=== PATIENT | female | born 1985 ===

== ENCOUNTER 2019-10-03 16:12 | Inpatient (IN) | payer OTHER ==
[2019-10-04] MEDS ORDERED: CITRIC ACID-SODIUM CITRATE 15 ML CUP PO ONE (16:50)
[2019-10-04] MEDS ORDERED: LACTATED RINGERS 1,000 ML IV ONE (16:50)
[2019-10-04] MEDS ORDERED: CLINDAMYCIN 900 MG in DEXTROSE 5% IN WATER 50 ML IVPB STA ×2 (16:52)
[2019-10-04] MEDS ORDERED: LACTATED RINGERS 1,000 ML IV SCH (17:00)
--- NOTE | 2019-10-04 17:00 | P.HPOB ---
History of Present Illness H&P Date: 10/04/19 Chief Complaint: 40-0/7 weeks, severe oligohydramnios, previous section The patient is a 34-year-old 5 para 1031 admitted at 40-0/7 weeks as established by last menstrual period and confirmed by early ultrasound. She transferred to our practice at approximately 28 weeks of gestation. Her has otherwise been uncomplicated. She does carry a history of a previous section and had requested vaginal trial of labor. She presented to the office today at which time she underwent routine amniotic fluid index for postdates at which time she was found to have less than 2 cm of fluid. Her cervix is an 18 favorable at fingertip, 40-50% effacement, with the vertex in presentation at -2-3 station. Given the remoteness from delivery and the potential issues with no fluid, the decision is made to repeat her low transverse section under spinal anesthesia. Group B strep status is negative. heart tracing is currently category 1. Obstetrical history: 5 para 1031 with 1 term section complicated by a high spinal and subsequent intubation as well as hemorrhage. Diagnosis for was failure to progress and nonreassuring heart tracing. She additionally had 3 early miscarriages one of which required D&C. Current statistics are listed in history of present illness. EDC of 10/04/2019 was established by last menstrual period and confirmed by early ultrasound at her previous practice in [place]. Laboratory workup demonstrates a blood type of O+ with a negative antibody screen. Rubella status is immune. Remainder of the laboratory workup was within normal limits. One hour Glucola was normal and group B strep status is negative. Gynecologic history: Unremarkable with no history of any infections to include STDs. Review of Systems Review of systems is confined to history of present illness. Past Medical History Past Medical History: Skin Disorder Additional Past Medical History / Comment(s): eczema History of Any Multi-Drug Resistant Organisms: None Reported Past Surgical History: Section Past Anesthesia/Blood Transfusion Reactions: No Reported Reaction Past Psychological History: No Psychological Hx Reported Smoking Status: Never smoker Past Drug Use History: None Reported - Past Family History Mother Family Medical History: Cancer Medications and Allergies Home Medications Medication Instructions Recorded Confirmed Type Pnv No.95/Ferrous Fum/Folic AC 1 tab PO DAILY 10/04/19 10/04/19 History [ Multivitamin Tablet] Allergies Allergy/AdvReac Type Severity Reaction Status Date / Time amoxicillin Allergy Rash/Hives Verified 10/04/19 16:41 shellfish derived [Shellfish] Allergy Swelling Verified 10/04/19 16:41 Exam Vital Signs Temp Pulse Resp BP 10/04/19 16:42 97.2 F L 90 16 125/80 Intake and Output 10/04/19 10/04/19 10/04/19 06:59 14:59 22:59 Other: Weight 87.543 kg In general, this is a well-developed, well-nourished white female in no acute distress. Her heart has a regular rhythm and rate without murmur. Her lungs are clear to auscultation bilaterally in all [place]. Her abdomen is gravid, nondistended, has normal active bowel sounds, is soft, nontender, and without any palpable masses aside from the uterine fundus. Her extremities are without any cyanosis, clubbing, or significant edema and are nontender to palpation bilaterally. Digital cervical examination demonstrates her cervix to be approximately fingertip dilated, 40-50% effaced, the vertex in presentation at -2-3 station. Assessment and Plan (1) Unfavorable cervix in term Current Visit: Yes Status: Acute Code(s): O34.40 - MATERNAL CARE FOR OTH ABNLT OF CERVIX, UNSP TRIMESTER SNOMED Code(s): 264080990 (2) Term Current Visit: Yes Status: Acute Code(s): Z34.90 - ENCNTR FOR SUPRVSN OF NORMAL , UNSP, UNSP TRIMESTER SNOMED Code(s): 81331955 (3) Previous section Current Visit: Yes Status: Acute Code(s): Z98.891 - HISTORY OF UTERINE SCAR FROM PREVIOUS SURGERY SNOMED Code(s): 647966608 (4) Oligohydramnios Current Visit: Yes Status: Acute Code(s): O41.00X0 - OLIGOHYDRAMNIOS, UNSP TRIMESTER, NOT APPLICABLE OR UNSP SNOMED Code(s): 27227315 Plan: The patient is admitted for repeat low transverse section and is in agreement with the plan given her remoteness from delivery. The risks and complications the procedure been thoroughly discussed including the risk for b leeding, transfusion, infection, or any other concerns. She has understood and agreed to proceed.
[2019-10-04 17:21] LABS: Basophils % (A) 1 %; Eosinophils # (A) 0.1 k/uL (0-0.7); Eosinophils % (A) 1 %; HCT 33.3 % (34.0-46.0); HGB 10.7 gm/dL (11.4-16.0); Hypochromasia Slight; Lymphocytes # (A) 1.5 k/uL (1.0-4.8); Lymphocytes % (A) 18 %; MCH 23.2 pg (25.0-35.0); MCHC 32.2 g/dL (31.0-37.0); MCV 72.1 fL (80.0-100.0); Mean Platelet Volume 8.6; Microcytosis Moderate; Monocytes # (A) 0.6 k/uL (0-1.0); Monocytes % (A) 7 %; Neutrophils # (A) 5.9 k/uL (1.3-7.7); Neutrophils % (A) 72 %; Platelet Count 253 k/uL (150-450); Poikilocytosis Slight; RBC 4.62 m/uL (3.80-5.40); RDW 15.6 % (11.5-15.5); WBC 8.3 k/uL (3.8-10.6)
[2019-10-04] MEDS ORDERED: fentaNYL (PF) 50 MCG/ML 2 ML AMP ONE (17:58)
[2019-10-04] MEDS ORDERED: ONDANSETRON 4 MG/2 ML VIAL ONE (17:58)
[2019-10-04] MEDS ORDERED: KETOROLAC 30 MG/ML 1 ML VIAL ONE (17:58)
[2019-10-04] MEDS ORDERED: MORPHINE SULFATE (PF) 0.3 MG/0.3 ML SYR ONE (17:58)
[2019-10-04] MEDS ORDERED: OXYTOCIN 10 UNIT/ML 1 ML VIAL ONE (17:58)
[2019-10-04] MEDS ORDERED: diphenhydrAMINE 50 MG CAP PO PRN (18:52)
[2019-10-04] MEDS ORDERED: NALOXONE 0.4 MG/ML 1 ML VIAL IV PRN (18:52)
[2019-10-04] MEDS ORDERED: LANOLIN CREAM 5 GM TUBE TOPICAL PRN (18:52)
[2019-10-04] MEDS ORDERED: diphenhydrAMINE 25 MG CAP PO PRN (18:52)
[2019-10-04] MEDS ORDERED: SIMETHICONE 80 MG CHEWABLE PO PRN (18:52)
[2019-10-04] MEDS ORDERED: METOCLOPRAMIDE 5 MG/ML 2 ML VIAL IVP PRN (18:52)
[2019-10-04] MEDS ORDERED: diphenhydrAMINE 50 MG/ML 1 ML VIAL IVP PRN ×2 (18:52)
[2019-10-04] MEDS ORDERED: ONDANSETRON 4 MG/2 ML VIAL IVP PRN (18:52)
[2019-10-04] MEDS ORDERED: ACETAMINOPHEN TAB 325 MG TAB PO PRN (18:52)
[2019-10-04] MEDS ORDERED: ZOLPIDEM 5 MG TAB PO PRN (18:52)
--- NOTE | 2019-10-04 18:59 | P.OP ---
Date of Procedure: 10/04/19 Preoperative Diagnosis: #1. 41 and one sevenths weeks, severe oligohydramnios #2. Previous section #3. Unfavorable cervix Postoperative Diagnosis: Same Procedure(s) Performed: #1. Repeat low transverse section Anesthesia: spinal Surgeon: Abdoul Jacome Electrical Contacts Adjuster #1: Jeremías Ellis Estimated Blood Loss (ml): 500 IV fluids (ml): 1,400 Urine output (ml): 100 Pathology: none sent Condition: stable Disposition: floor Operative Findings: The patient was noted in the office to have severe oligohydramnios with less than 2 cm total fluid noted. heart tones were relatively reassuring, category 1 tracing. She was taken to the operating room because of the remoteness from delivery where she had a repeat low transverse section and an incompetent fashion. She was delivered of a viable 7 lbs. 11 oz. baby girl with Apgars of 9 at 1 minute and 9 at 5 minutes delivered in the left occiput transverse position. The placenta was delivered manually, intact, and grossly normal with a grossly normal three-vessel cord. The uterus, tubes, and ovaries were entirely normal to inspection. Description of Procedure: The patient was prepped and draped in usual fashion after spinal anesthesia was administered by the anesthesiologist. A Pfannenstiel incision was made through pre-existing scar and extended into the abdominal cavity without difficulty. There was mild scarring at the level of the fascia and muscles. The bladder peritoneum was elevated, incised, and reflected distally as it was scarred fairly high on the lower uterine segment. A 2 cm incision was made in the transverse plane of the lower uterine segment to enter the uterus at which time almost no fluid was noted. Incision was extended in both directions using the bandage scissors. The head was delivered up and through the incision where the nose and mouth were thoroughly suctioned. Remainder of the was delivered onto the field where the cord was doubly clamped, cut, and the infant passed for resuscitative measures with weight and Apgars as noted above. cord blood was sent as the patient is O+ for ABO incompatibility testing. The placenta was delivered manually and intact as noted above. The uterus was exteriorized and the interior cavity of the uterus swept of any remaining placental or membranous fragments. The margins of the uterine incision were grasped with Vanegas clamps and the incision closed in 2 layers. The first layer was a running locking stitch of 0 chromic catgut followed by a running imbricating layer of 0 chromic catgut, each from margin to margin. The posterior cul-de-sac was suctioned with a guard and the uterine and ovarian findings were normal as noted above. Any small points of bleeding and the uterine incision were made hemostatic with the Bovie. The uterus was replaced within the abdominal cavity and the gutters swept of any remaining blood, fluid, or clot. The incision was reexamined and found to be hemostatic. The parietal peritoneum was loosely reapproximated in the layer of muscles examined and found to be hemostatic. The fascia was closed with 2 running layers of 0 Vicryl proceeding from the lateral margins to the midpoint. The subcutaneous tissues were irrigated, made hemostatic with the Bovie, and reapproximated with a running stitch of 30 plain catgut. There was an ongoing point of bleeding at the right angle of the incision in the subcutaneous tissues which required a xjihfy-rd-osmcu stitch of 0 chromic as well as cautery, was ultimately controlled. The skin was reapproximated with a running subcuticular stitch of 4-0 Vicryl followed by half-inch Steri-Strips placed with Mastisol. Estimated blood loss for the case was approximately 500 mL. There were no complications. All sponge, instrument, and needle counts were correct. The patient tolerated the procedure well and proceeded to the recovery room in stable condition. Both mother and infant are resting comfortably in recovery.
[2019-10-04] MEDS ORDERED: OXYTOCIN 20 UNITS/1000 ML NS 1,000 ML IV SCH (19:00)
[2019-10-04] MEDS: LACTATED RINGERS 1,000 ML IV SCH (21:34)
[2019-10-04] MEDS: SENNOSIDES-DOCUSATE SODIUM 1 EACH TAB PO SCH (21:34)
[2019-10-05] MEDS: KETOROLAC 30 MG/ML 1 ML VIAL IVP PRN ×2 (04:28→10:17)
[2019-10-05] MEDS: LACTATED RINGERS 1,000 ML IV SCH ×2 (04:29→17:50)
--- NOTE | 2019-10-05 06:55 | P.PN ---
Progress Note - Text 10/04 636am 84-year-old female status post by Dr. Jacome. Patient has spinal anesthetic with Duramorph. Patient has a VAS of 2 with complaints of mild pruritus which should not last for more than 24 hours.. Patient is doing very well.
[2019-10-05 07:56] LABS: Basophils % (A) 0 %; Eosinophils # (A) 0.1 k/uL (0-0.7); Eosinophils % (A) 1 %; HCT 26.6 % (34.0-46.0); Hypochromasia Marked; Lymphocytes # (A) 1.2 k/uL (1.0-4.8); Lymphocytes % (A) 14 %; MCH 22.7 pg (25.0-35.0); MCHC 31.1 g/dL (31.0-37.0); MCV 72.9 fL (80.0-100.0); Mean Platelet Volume 9.1; Microcytosis Slight; Monocytes # (A) 0.4 k/uL (0-1.0); Monocytes % (A) 5 %; Neutrophils # (A) 7.2 k/uL (1.3-7.7); Neutrophils % (A) 79 %; Platelet Count 222 k/uL (150-450); Poikilocytosis Slight; RBC 3.65 m/uL (3.80-5.40); RDW 15.3 % (11.5-15.5); WBC 9.1 k/uL (3.8-10.6)
[2019-10-05 08:13] LABS: HGB 8.3 gm/dL (11.4-16.0)
--- NOTE | 2019-10-05 09:38 | P.PNOBGPC ---
Subjective - Subjective Patient reports: Reports appetite normal, Reports voiding normally, Reports pain well controlled, Reports ambulating normally : doing well Objective - Vital Signs Latest vital signs: Vital Signs Temp Pulse Resp BP Pulse Ox 10/05/19 07:50 98.5 F 70 16 111/64 97 10/05/19 04:20 98.3 F 72 16 106/67 98 10/04/19 23:31 98.5 F 83 16 112/72 97 10/04/19 20:53 97.3 F L 74 16 114/68 100 10/04/19 20:23 97.2 F L 65 16 113/64 98 10/04/19 19:53 96.7 F L 70 16 110/73 98 10/04/19 19:38 96.6 F L 67 16 92/51 96 10/04/19 19:23 97.0 F L 69 16 92/50 95 10/04/19 19:08 71 16 91/53 95 10/04/19 18:53 96.9 F L 77 16 109/55 96 10/04/19 16:42 97.2 F L 90 16 125/80 Intake and Output 10/04/19 10/05/19 10/05/19 22:59 06:59 14:59 Intake Total 1400 120 Output Total 250 100 Balance 1150 20 Intake: IV 1400 Oral 120 Output: Urine 250 100 Uretheral (Odom) 100 Other: # Voids 0 Weight 87.543 kg - Exam Extremities: Present: normal Abdomen: Present: normal appearance, soft. Absent: distention, tenderness Incision: Present: normal, dry, intact Uterus: Present: normal, firm (The uterine fundus is tonic and appropriately tender just below the umbilicus.) - Labs Labs: Abnormal Lab Results - Last 24 Hours (Table) 10/04/19 10/05/19 Range/Units 16:58 06:49 RBC 3.65 L (3.80-5.40) m/uL Hgb 10.7 L 8.3 L D (11.4-16.0) gm/dL Hct 33.3 L 26.6 L (34.0-46.0) % MCV 72.1 L 72.9 L (80.0-100.0) fL MCH 23.2 L 22.7 L (25.0-35.0) pg RDW 15.6 H (11.5-15.5) % Assessment and Plan (1) Unfavorable cervix in term Current Visit: Yes Status: Acute Code(s): O34.40 - MATERNAL CARE FOR OTH ABNLT OF CERVIX, UNSP TRIMESTER SNOMED Code(s): 685693493 (2) Term Current Visit: Yes Status: Acute Code(s): Z34.90 - ENCNTR FOR SUPRVSN OF NORMAL , UNSP, UNSP TRIMESTER SNOMED Code(s): 90072545 (3) Previous section Current Visit: Yes Status: Acute Code(s): Z98.891 - HISTORY OF UTERINE SCAR FROM PREVIOUS SURGERY SNOMED Code(s): 247405377 (4) Oligohydramnios Current Visit: Yes Status: Acute Code(s): O41.00X0 - OLIGOHYDRAMNIOS, UNSP TRIMESTER, NOT APPLICABLE OR UNSP SNOMED Code(s): 23711892 (5) S/P section Current Visit: Yes Status: Acute Code(s): Z98.891 - HISTORY OF UTERINE SCAR FROM PREVIOUS SURGERY SNOMED Code(s): 222525523 Plan: Continue routine postoperative care. I have encouraged the patient to ambulate in the hallways routinely. Possible discharge home tomorrow morning pending no complications.
[2019-10-05] MEDS: SENNOSIDES-DOCUSATE SODIUM 1 EACH TAB PO SCH ×2 (10:43→20:19)
[2019-10-05] MEDS: HYDROcodone/APAP 5-325MG 1 EACH TAB PO PRN ×2 (13:14→20:19)
[2019-10-05] MEDS: IBUPROFEN 600 MG TAB PO PRN (16:13)
[2019-10-06] MEDS: HYDROcodone/APAP 5-325MG 1 EACH TAB PO PRN ×2 (00:02→04:05)
[2019-10-06] MEDS: IBUPROFEN 600 MG TAB PO PRN ×2 (00:50→12:31)
[2019-10-06] MEDS: HYDROcodone/APAP 7.5-325MG 1 EACH TAB PO PRN ×2 (08:12→16:21)
[2019-10-06] MEDS: SENNOSIDES-DOCUSATE SODIUM 1 EACH TAB PO SCH (08:13)
--- NOTE | 2019-10-06 08:40 | P.DS ---
Providers Date of admission: 10/04/19 16:16 Expected date of discharge: 10/06/19 Attending physician: Abdoul Jacome Primary care physician: Stated None - Discharge Diagnosis(es) (1) Unfavorable cervix in term Current Visit: Yes Status: Acute (2) Term Current Visit: Yes Status: Acute (3) Previous section Current Visit: Yes Status: Acute (4) Oligohydramnios Current Visit: Yes Status: Acute (5) S/P section Current Visit: Yes Status: Acute Hospital Course: The patient is a 34-year-old 5 para 1031 admitted at 40 and one sevenths weeks by good dating parameters. She is admitted with a finding of severe oligohydramnios on ultrasound performed by myself in our office which showed a total of less than 2 cm of fluid. The patient is uncertain as to possible rupture of membranes as she reported feeling somewhat more discharge over the course of the last 24-48 hours prior to admission. In either case, she is admitted to the hospital with severe oligohydramnios and a very unfavorable cervix as well as a history of a previous section. Her intention to was abandoned secondary to the remoteness from delivery combined with very little fluid and the idea that the fetus would not tolerate labor. She was taken the operating room where she was delivered of a viable 7 lbs. 11 oz. baby girl with Apgars of 9 at 1 minute and 9 at 5 minutes. Her postoperative course was unremarkable with vital signs remaining stable and her temperature was afebrile throughout. She was deemed stable for discharge on post operative day #2 and was discharged home to follow-up in the office in 2 weeks for an incision check and 6 weeks routinely. Discharge instructions included calling for any significantly increased bleeding or foul-smelling lochia, significantly increased fever or abdominal pain, perineal complaints, breast complaints, incisional complaints, or anything else that concerned her. She was additionally instructed to have nothing in vagina for at least 6 weeks time to include intercourse and to abstain from any heavy lifting over the same period of time. She was lastly instructed to do no driving until off of all pain medications or 2 weeks' time, whichever came first. She understood her instructions and agrees to follow up as noted above. Discharge medications included continued vitamins as she has opted to breast-feed. She additionally was provided with a prescription for [place] 5/325 mg, 1-2 by mouth every 6 hours when necessary pain, #20 dispensed with no refills. She was otherwise to use [id number] analgesic pain medications as needed. Maternal blood type is O+ and rubella status is immune. Discharge hemoglobin and hematocrit were 8.3 and 26.6 respectively. As result, she was instructed to take iron sulfate daily for at least 1 month to rebuild her blood count. Procedures: #1. Repeat low transverse section Patient Condition at Discharge: Stable Plan - Discharge Summary New Discharge Prescriptions: No Action Pnv No.95/Ferrous Fum/Folic AC [ Multivitamin Tablet] 1 tab PO DAILY Discharge Medication List Pnv No.95/Ferrous Fum/Folic AC [ Multivitamin Tablet] 1 tab PO DAILY 10/04/19 [History] Follow up Appointment(s)/Referral(s): Abdoul Jacome MD [STAFF PHYSICIAN] - 2 Weeks Discharge Disposition: HOME SELF-CARE
[2019-10-06 17:05] VITALS: BP 135/73; PULSE 80; RESP 15; TEMP 98
== END 2019-10-06 18:40 | disposition home or self-care (01) | DRG 788 ==
LOC: 4FBP 10-04 16:16
PROVIDERS: ADMIT Obstetrics & Gynecology; ATTEND Obstetrics & Gynecology
PROC: 10D00Z1 Extraction of Products of Conception, Low, Open Approach (ICD-10-PCS; principal; 2019-10-04 18:00)
DX: O41.03X0 Oligohydramnios, third trimester, not applicable or unspecified (principal); Z3A.40 40 weeks gestation of pregnancy; Z37.0 Single live birth; O34.211 Maternal care for low transverse scar from previous cesarean delivery; Z88.0 Allergy status to penicillin; Z91.013 Allergy to seafood; L29.9 Pruritus, unspecified
CPT/HCPCS: 85025; 86850; 86900; 86901

== ENCOUNTER 2022-12-16 10:32 | Outpatient (CLI) | payer OTHER ==
[2022-12-16 11:14] VITALS: BP 114/67; PULSE 90; RESP 15; TEMP 97.9
--- NOTE | 2022-12-16 20:26 | P.MSEPDOC ---
Presenting Problems - Arrival Data Date of Arrival on Unit: 12/16/22 Time of Arrival on Unit: 10:32 Mode of Transport: Ambulatory - Complaint OB-Reason for Admission/Chief Complaint: NST Medical History - Information : 6 Para: 2 Number of Living Children: 2 - Gestational Age Gestational Age by VICENTE (wks/days): 36 Weeks and 5 Days - History Complications: GDM Review of Systems - Review of Systems Constitutional: No problems Breast: No problems ENT: No problems Cardiovascular: No problems Respiratory: No problems Gastrointestinal: No problems Genitourinary: No problems Musculoskeletal: No problems Neurological: No problems Skin: No problems Vital Signs - Temperature Temperature: 97.9 F Temperature Source: Temporal Artery Scan - Pulse Pulse Oximetery Pulse Rate: 90 Pulse Assessment Method: Pulse Oximetry - Respirations Respiratory Rate: 15 Oxygen Delivery Method: Room Air O2 Sat by Pulse Oximetry: 100 - Blood Pressure Right Arm Sitting Blood Pressure: 114/67 Blood Pressure Mean: 82 Blood Pressure Source: Automatic Cuff Medical Screen Scoring - Assessment - Baby A Baseline FHR: 140 Heart Rate - NICHD Category: Category I (Normal) NST: Reactive Maternal Triage Index - Maternal Triage Index Presenting for scheduled procedure w/no complaint: Yes - Scheduled/Requesting Priority 5 Scheduled/Requesting Priority 5: No Disposition - Disposition OB Disposition: Discharge to home, Written follow up instructions reviewed Discharge Date: 12/16/22 Discharge Time: 11:13 I agree with the RN Medical Screening Exam: Yes Case reviewed; plan agreed upon as documented in EMR&OBIX.: Yes Diagnosis: RELATED CONDITIONS, UNSPECIFIED, THIRD TRIMESTER (Patient presents to labor and delivery for nonstress test secondary to gestational diabetes. Nonstress test is reactive/category 1. Patient's discharge home follow up with me in 2 days for repeat nonstress test and biophysical profile.)
== END 2022-12-16 11:14 | disposition home or self-care (01) ==
LOC: FBPOP 10:32
PROVIDERS: ATTEND Obstetrics & Gynecology
DX: O26.893 Other specified pregnancy related conditions, third trimester (principal); Z3A.36 36 weeks gestation of pregnancy; Z88.0 Allergy status to penicillin; Z91.013 Allergy to seafood; O24.414 Gestational diabetes mellitus in pregnancy, insulin controlled; Z79.4 Long term (current) use of insulin
CPT/HCPCS: 59025

== ENCOUNTER 2022-12-26 17:45 | Outpatient (CLI) | payer OTHER ==
[2022-12-26] MEDS ORDERED: LACTATED RINGERS 1,000 ML IV ONE ×2 (18:15→19:30)
[2022-12-26 18:34] LABS: Anisocytosis Slight; Basophils % (A) 0 %; Eosinophils # (A) 0.1 k/uL (0-0.7); Eosinophils % (A) 1 %; HCT 32.2 % (34.0-46.0); HGB 10.3 gm/dL (11.4-16.0); Hypochromasia Moderate; Lymphocytes % (A) 11 %; MCH 22.5 pg (25.0-35.0); MCHC 32.1 g/dL (31.0-37.0); MCV 70.2 fL (80.0-100.0); Mean Platelet Volume 8.9; Microcytosis Marked; Monocytes # (A) 0.4 k/uL (0-1.0); Monocytes % (A) 5 %; Neutrophils # (A) 7.8 k/uL (1.3-7.7); Neutrophils % (A) 82 %; Platelet Count 243 k/uL (150-450); Poikilocytosis Slight; RBC 4.58 m/uL (3.80-5.40); WBC 9.4 k/uL (3.8-10.6)
[2022-12-26 20:35] VITALS: BP 123/78; PULSE 105; RESP 16; TEMP 97.8
--- NOTE | 2022-12-28 10:55 | P.MSEPDOC ---
Presenting Problems - Arrival Data Date of Arrival on Unit: 12/26/22 Time of Arrival on Unit: 17:45 Mode of Transport: Ambulatory - Complaint OB-Reason for Admission/Chief Complaint: Possible Onset of Labor Comment: Dr. Black given report on maternal and status, FHR, contraction pattern,. vaginal exam, discussed that patient is mildly uncomfortable with contractions and. states that she did have some diarrhea today. Physician states to monitor patient for. one hour, to initiate iv access to collect and send a cbc. Medical History - Information : 6 Para: 2 Term: 2 : 2 Abortions: Spontaneous or Elective: 3 Number of Living Children: 2 - Gestational Age Gestational Age by VICENTE (wks/days): 38 Weeks and 1 Days - History Complications: Prior Review of Systems - Review of Systems Constitutional: No problems Breast: No problems ENT: No problems Cardiovascular: No problems Respiratory: No problems Gastrointestinal: No problems Genitourinary: No problems Musculoskeletal: No problems Neurological: No problems Skin: No problems Vital Signs - Temperature Temperature: 97.8 F Temperature Source: Temporal Artery Scan - Pulse Pulse Oximetery Pulse Rate: 105 Pulse Assessment Method: Pulse Oximetry - Respirations Respiratory Rate: 16 Oxygen Delivery Method: Room Air O2 Sat by Pulse Oximetry: 97 - Blood Pressure Right Arm Blood Pressure: 123/78 Blood Pressure Mean: 93 Blood Pressure Source: Automatic Cuff Medical Screen Scoring - Cervical Exam Dilation (cm): 1 Effacement (%): 0 Membranes: Intact - Uterine Contractions Frequency From (mins): 4 Frequency To (mins): 5 Duration From (seconds): 60 Duration To (seconds): 80 Intensity: Mild Resting: Soft to palpation - Assessment - Baby A Baseline FHR: 135 Heart Rate - NICHD Category: Category I (Normal) NST: Reactive Physician Notification - Physician Notified Physician Notified Date: 12/26/22 Physician Notified Time: 18:02 Physician: Kayla Black - Notification Comment Comment: Spoke with Dr. Black on phone, updated unchanged cervical exam, contractions and. patient status. Orders to send patient home with discharge instructions including to. come back in if water breaks, decreased movement or contractions increase in. intensity. Maternal Triage Index - Stat/Priority 1 Stat Priority 1: No - Urgent/Priority 2 Urgent Priority 2: No - Prompt/Priority 3 Prompt Priority 3: Yes Criteria Met for Priority 3: >34 weeks planned, elective, repeat with regular contractions Disposition - Disposition OB Disposition: Discharge to home Discharge Date: 12/26/22 Discharge Time: 20:34 I agree with the RN Medical Screening Exam: Yes Case reviewed; plan agreed upon as documented in EMR&OBIX.: Yes Diagnosis: RELATED CONDITIONS, UNSPECIFIED, THIRD TRIMESTER
== END 2022-12-26 20:50 | disposition home or self-care (01) ==
LOC: FBPOP 17:45
PROVIDERS: ATTEND Obstetrics & Gynecology
DX: O26.893 Other specified pregnancy related conditions, third trimester (principal); Z3A.38 38 weeks gestation of pregnancy; O34.219 Maternal care for unspecified type scar from previous cesarean delivery; Z88.0 Allergy status to penicillin; Z88.6 Allergy status to analgesic agent; Z91.013 Allergy to seafood
CPT/HCPCS: 59025; 85025; 96360; 96361; 99213

== ENCOUNTER 2023-01-01 05:43 | Inpatient (IN) | payer OTHER ==
--- NOTE | 2022-12-31 18:04 | P.HPOB ---
History of Present Illness H&P Date: 12/31/22 Chief Complaint: Repeat section and tubal ligation This patient is a pleasant 37-year-old 6 para 2 female estimated date of confinement 01/08/2023 estimated gestational age 39-0/7 weeks gestation who is admitted to labor and delivery for elective repeat section and also requesting permanent sterilization. Patient's has been complicated by advanced maternal age. She did have a normal genetic testing with a cell-free DNA showing 46 XX. She is also had a normal level III ultrasound. Patient also has developed gestational diabetes and has been followed by maternal medicine for this. She has been on evening insulin due to elevated fasting blood sugars. Patient also developed at approximately 34 weeks a decreased JENNY that was 5. Patient was admitted by maternal medicine at 35 weeks and her JENNY went back up into the 7-9 range. Patient's been followed closely with weekly nonstress tests and amniotic fluid indexes. Recommendations at proceed with delivery at 39 weeks. Patient's also requesting permanent sterilization. Review of Systems Genitourinary: Reports Menstruation: Reports amenorrhea Past Medical History Past Medical History: Skin Disorder Additional Past Medical History / Comment(s): eczema; gestational diabetes History of Any Multi-Drug Resistant Organisms: None Reported Past Surgical History: Section Past Anesthesia/Blood Transfusion Reactions: No Reported Reaction Past Psychological History: No Psychological Hx Reported Smoking Status: Never smoker Past Alcohol Use History: None Reported Past Drug Use History: None Reported - Past Family History Mother Family Medical History: Cancer Medications and Allergies Home Medications Medication Instructions Recorded Confirmed Type Pnv No.95/Ferrous Fum/Folic AC 1 tab PO DAILY 10/04/19 12/26/22 History [ Multivitamin Tablet] Insulin Glargine-Yfgn [Semglee 30 units SQ DAILY 11/25/22 12/26/22 History (Yfgn) Pen] Allergies Allergy/AdvReac Type Severity Reaction Status Date / Time amoxicillin Allergy Rash/Hives Verified 12/26/22 18:11 doxycycline Allergy Rash/Hives Verified 12/26/22 18:11 shellfish derived [Shellfish] Allergy Swelling Verified 12/26/22 18:11 Exam - OBG Physical Exam Abdomen: bowel sounds normal, no diffuse tenderness, no bruit present, no guarding noted, no hepatomegaly, no splenomegaly, no mass Vulva: both: normal Vagina: normal moisture, no discharge Cervix: no lesion, no discharge Uterus: enlarged Adnexa: both: normal Results blood work shows she is O positive, rubella immune, RPR nonreactive, hepatitis B and C were negative, HIV is nonreactive, Glucola was 140 was to have normal three-hour GTT values, group B strep was negative, ultrasounds of shown normal anatomy however decreased amniotic fluid index. Assessment and Plan Assessment: This is a pleasant 37-year-old 6 para 2 female estimated gestational age 39-0/7 weeks gestation who presents to labor and delivery for elective repeat section and also requesting permanent sterilization. Plan is repeat low transverse section and bilateral partial salpingectomy. Patient does understand the surgery and risks and risks of infection, bleeding, possible injury bowel, bladder, vessels, and/or other organs. All the patient's questions are answered and a written consent is obtained. Patient is also advanced for maternal age but has had negative genetic testing. She also has gestational diabetes that has required insulin. We will check a blood sugar on admission. Patient's control has been good other than some elevated fasting blood sugars. (1) 39 weeks gestation of Status: Acute Code(s): Z3A.39 - 39 WEEKS GESTATION OF SNOMED Code(s): 31206953 (2) Gestational diabetes Status: Acute Code(s): O24.419 - GESTATIONAL DIABETES MELLITUS IN , UNSP CONTROL SNOMED Code(s): 02792155 (3) Family planning Status: Acute Code(s): Z30.09 - ENCOUNTER FOR OT GENERAL CNSL AND ADVICE ON CONTRACEPTION SNOMED Code(s): 721767493 (4) Previous section Status: Acute Code(s): Z98.891 - HISTORY OF UTERINE SCAR FROM PREVIOUS SURGERY SNOMED Code(s): 397066086 (5) Elderly multigravida Status: Acute Code(s): O09.529 - SUPERVISION OF ELDERLY MULTIGRAVIDA, UNSPECIFIED TRIMESTER SNOMED Code(s): 386929122
[2023-01-01] MEDS ORDERED: OXYTOCIN 10 UNIT/ML 1 ML VIAL IM PRN (06:09)
[2023-01-01] MEDS ORDERED: METHYLERGONOVINE 0.2 MG/ML 1 ML AMP IM PRN (06:09)
[2023-01-01] MEDS ORDERED: LACTATED RINGERS 1,000 ML IV ONE (06:09)
[2023-01-01] MEDS ORDERED: LACTATED RINGERS 1,000 ML IV SCH (06:09)
[2023-01-01] MEDS ORDERED: miSOPROStoL 200 MCG TAB PO PRN (06:09)
[2023-01-01] MEDS ORDERED: TRANEXAMIC 1,000 MG/100ML-NACL 1,000 MG in EMPTY BAG 1 BAG IV PRN (06:09)
[2023-01-01] MEDS ORDERED: CITRIC ACID-SODIUM CITRATE 15 ML CUP PO ONE (06:09)
[2023-01-01] MEDS ORDERED: CARBOPROST TROMETHAMINE 250 MCG/ML 1 ML AMP IM PRN (06:09)
[2023-01-01 06:27] LABS: Glucose,Whole Blood 117 mg/dL (70-110)
[2023-01-01 06:52] LABS: Anisocytosis Slight; Basophils % (A) 0 %; Eosinophils # (A) 0.2 k/uL (0-0.7); Eosinophils % (A) 2 %; HCT 30.3 % (34.0-46.0); HGB 10.1 gm/dL (11.4-16.0); Hypochromasia Moderate; Lymphocytes # (A) 2.3 k/uL (1.0-4.8); Lymphocytes % (A) 23 %; MCH 23.3 pg (25.0-35.0); MCHC 33.4 g/dL (31.0-37.0); MCV 69.7 fL (80.0-100.0); Mean Platelet Volume 8.4; Microcytosis Marked; Monocytes # (A) 0.5 k/uL (0-1.0); Monocytes % (A) 5 %; Neutrophils % (A) 69 %; Platelet Count 267 k/uL (150-450); Poikilocytosis Slight; RBC 4.35 m/uL (3.80-5.40); RDW 17.2 % (11.5-15.5); WBC 10.1 k/uL (3.8-10.6)
[2023-01-01] MEDS ORDERED: fentaNYL (PF) 50 MCG/ML 2 ML AMP ONE (07:44)
[2023-01-01] MEDS ORDERED: DEXAMETHASONE SOD PHOSPHATE 4 MG/ML 1 ML VIAL ONE (07:44)
[2023-01-01] MEDS ORDERED: OXYTOCIN 30 UNITS/500 ML NS BAG IV ONE (07:44)
[2023-01-01] MEDS ORDERED: MORPHINE SULFATE (PF) 0.3 MG/0.3 ML SYR ONE (07:44)
[2023-01-01] MEDS ORDERED: KETOROLAC 15 MG/ML 1 ML VIAL ONE (07:44)
[2023-01-01] MEDS ORDERED: ONDANSETRON 4 MG/2 ML VIAL ONE (07:44)
[2023-01-01 08:49] VITALS: RESP 16
[2023-01-01] MEDS ORDERED: ZOLPIDEM 5 MG TAB PO PRN (08:49)
[2023-01-01] MEDS ORDERED: ONDANSETRON 4 MG/2 ML VIAL IVP PRN (08:49)
[2023-01-01] MEDS ORDERED: NALOXONE 0.4 MG/ML 1 ML VIAL IV PRN (08:49)
[2023-01-01] MEDS ORDERED: diphenhydrAMINE 50 MG/ML 1 ML VIAL IVP PRN (08:49)
[2023-01-01] MEDS ORDERED: diphenhydrAMINE 25 MG CAP PO PRN (08:49)
[2023-01-01] MEDS ORDERED: METOCLOPRAMIDE 5 MG/ML 2 ML VIAL IVP PRN (08:49)
[2023-01-01] MEDS ORDERED: SIMETHICONE 80 MG CHEWABLE PO PRN (08:49)
[2023-01-01] MEDS ORDERED: LANOLIN CREAM 5 GM TUBE TOPICAL PRN (08:49)
[2023-01-01] MEDS ORDERED: OXYTOCIN 30 UNITS/500 ML NS 30 UNIT in SALINE 1 500ML.BAG IV SCH (09:00)
--- NOTE | 2023-01-01 09:00 | P.OP ---
Date of Procedure: 01/01/23 Preoperative Diagnosis: #1: 39-0/7 weeks . #2: Previous section desires repeat. 3: Multi parity desires permanent sterilization. #4: Gestational diabetes. #5: Elderly multipara Postoperative Diagnosis: Same Procedure(s) Performed: Repeat low transverse section and bilateral partial salpingectomy Anesthesia: spinal Surgeon: Jeremías Ellis Manufacturing Maintenance Technician #1: Graciela Sarmiento Estimated Blood Loss (ml): 600 Pathology: other (Placenta and bilateral fallopian tube segments) Condition: stable Disposition: floor Indications for Procedure: Please see dictated H&P for intimate details of this patient's admission. Brief summary this is a pleasant 37-year-old 6 para 2 female 39-0/7 weeks gestation admitted to labor and delivery for elective repeat section and also requesting permanent sterilization. Patient her stands a tubal ligation is considered permanent. She also understands surgery itself has risks including risks of infection, bleeding, possible injury bowel, bladder, vessels, and/or other organs. All the patient's questions are answered and a written consent is obtained. Operative Findings: This is a vigorous viable female Apgars 9 and 9 delivery time was 0807 h rs. Patient's uterus, tubes, ovaries appear normal for term gestation. She had some omental adhesions to the left anterior wall. Description of Procedure: This patient has a Odom catheter placed to straight drain. She is subsequently taken to the operating room where she sat up and spinal anesthetic is administered without incident. She has abdominal prep and drape. After the appropriate timeout, scalpels taken and a Pfannenstiel skin incision is incised. A second scalpel is taken down the fascia the fascia scored with a knife. Fascial incision extended bilaterally using the Ruiz scissors. Fascia is then dissected off the rectus muscles sharply. Rectus muscles are and the peritoneum is immediately opened. The peritoneal incision extended superiorly and inferior without difficulty. Bladder blade is then placed. Bladder peritoneum was taken sharply off the lower uterine segment. Scalpels then taken a low transverse uterine incision is made. Using a hemostat I enter into the uterine cavity bluntly. There is loss of small amount of clear fluid. The uterine cavity is extended bluntly. The infant's head is then delivered easily through the incision with fundal pressure. Mouth and nares are bulb suctioned. There is no evidence of a nuchal cord. With more fundal pressure we then deliver the rest this 's body. This is a vigorous viable female infant Apgars are 9 and 9 and delivery time was 0807 hrs. After delivery infant the umbilical cord is doubly clamped and cut is handed off to the nurses in attendance. The placenta is then manually extracted intact. Uterus is then externalized and uterine incision is then demarcated with Vanegas clamps. Uterine incision closed using 0 Vicryl running locked fashion 2 layers. With this done I turned my attention to the left fallopian tube approximately 4 cm from the cornual insertion a small window is made to the mesial salpinx with Bovie cautery. 2-0 silk I doubly ligate a 2 cm segment of the tube. This is excised and handed off to pathology. Cauterization done of the tubal ends. A similar technique is done on the right side with similar results. This completed excess fluid is removed from the abdomen and pelvis. Inspection shows excellent hemostasis. Parietal peritoneum was then closed best as possible. Note there is one adhesion on the left side of the peritoneum which is left alone. The rectus muscles are reapproximated in 0 Vicryl interrupted fashion. Fascia is then closed using 0 PDS. The subcutaneous tissues inspected and there is an areas bleeding on the right side with several [id number] stitches and a 3-0 Vicryl and at this time hemostasis is assured. Subcutaneous tissues and reapproximated using a 3-0 Vicryl. Skin is and closed using yasir. All counts are correct 3. There are no complications. Infant and mother are taken to the birthing suite in satisfactory condition.
[2023-01-01] MEDS: KETOROLAC 15 MG/ML 1 ML VIAL IVP SCH ×2 (15:54→23:04)
[2023-01-01] MEDS: SENNOSIDES-DOCUSATE SODIUM 1 EACH TAB PO SCH (20:05)
[2023-01-01] MEDS: LACTATED RINGERS 1,000 ML IV SCH ×2 (21:19→21:20)
[2023-01-01] MEDS: IBUPROFEN 600 MG TAB PO SCH ×2 (21:20→21:21)
[2023-01-01] MEDS: ACETAMINOPHEN TAB 500 MG TAB PO SCH (21:20)
[2023-01-02] MEDS: ACETAMINOPHEN TAB 500 MG TAB PO SCH ×4 (01:47→18:10)
[2023-01-02] MEDS: LACTATED RINGERS 1,000 ML IV SCH ×2 (01:47→10:25)
[2023-01-02] MEDS: KETOROLAC 15 MG/ML 1 ML VIAL IVP SCH ×2 (04:30→18:27)
[2023-01-02] MEDS: IBUPROFEN 600 MG TAB PO SCH ×4 (05:26→19:42)
--- NOTE | 2023-01-02 07:37 | P.PNOBGPC ---
Subjective - Subjective Principal diagnosis: status post repeat low transverse with tubal ligation POD#1 Interval history: patient seen and examined. Denies nausea, vomiting, chest pain, shortness of breath or calf pain. Patient reports: Reports appetite normal, Reports voiding normally, Reports pain well controlled, Reports ambulating normally : doing well Objective - Vital Signs Latest vital signs: Vital Signs Temp Pulse Resp BP Pulse Ox 01/02/23 04:00 72 16 102/65 95 01/02/23 00:00 97.6 F 71 16 101/63 95 01/01/23 20:00 98.3 F 68 16 106/70 95 01/01/23 16:00 98.5 F 79 16 99/61 01/01/23 11:41 97.7 F 79 16 124/73 01/01/23 10:42 98.3 F 72 16 98/56 01/01/23 10:16 71 16 107/56 01/01/23 09:43 78 16 92/51 95 01/01/23 09:31 98.1 F 72 16 93/54 97 01/01/23 09:16 83 16 104/59 97 01/01/23 09:01 75 16 92/53 97 01/01/23 08:46 96.5 F L 82 16 99/54 99 Intake and Output 01/01/23 01/02/23 01/02/23 22:59 06:59 14:59 Output Total 3950 Balance -3950 Output: Urine 3950 Uretheral (Odom) 3200 Other: # Voids 1 2 - Exam Lungs: bilateral: normal Chest: Normal S1, Normal S2 Extremities: Present: normal Abdomen: Present: normal appearance, soft. Absent: distention, tenderness Incision: Present: normal, dry, intact Uterus: Present: normal, firm Assessment and Plan (1) Status post repeat low transverse section Current Visit: Yes Status: Acute Code(s): Z98.891 - HISTORY OF UTERINE SCAR FROM PREVIOUS SURGERY SNOMED Code(s): 481188547 Plan: 1. Increase ambulation 2. Regular diet 3. Pain control with oral medication
[2023-01-02 07:39] LABS: Anisocytosis Slight; Basophils % (A) 0 %; Eosinophils # (A) 0.2 k/uL (0-0.7); Eosinophils % (A) 2 %; HCT 24.4 % (34.0-46.0); Hypochromasia Marked; Lymphocytes # (A) 2.5 k/uL (1.0-4.8); Lymphocytes % (A) 22 %; MCH 22.5 pg (25.0-35.0); MCHC 31.7 g/dL (31.0-37.0); Mean Platelet Volume 9.4; Microcytosis Marked; Monocytes # (A) 0.6 k/uL (0-1.0); Monocytes % (A) 6 %; Neutrophils # (A) 7.8 k/uL (1.3-7.7); Neutrophils % (A) 70 %; Platelet Count 232 k/uL (150-450); Poikilocytosis Slight; RBC 3.43 m/uL (3.80-5.40); RDW 17.1 % (11.5-15.5); WBC 11.1 k/uL (3.8-10.6)
[2023-01-02 07:45] LABS: HGB 7.7 gm/dL (11.4-16.0)
--- NOTE | 2023-01-02 07:59 | P.PN ---
Progress Note - Text Date: 01/10/2015 Time: 07:07 The patient is status post section Vital signs stable VAS: 0-10 Patient has no complaints of pain. The patient incurred some minimal itching yesterday, this itching is now subsiding. Pain meds to be managed by service.
[2023-01-02] MEDS: SENNOSIDES-DOCUSATE SODIUM 1 EACH TAB PO SCH ×2 (16:17→19:41)
[2023-01-03] MEDS: ACETAMINOPHEN TAB 500 MG TAB PO SCH ×3 (00:27→12:09)
[2023-01-03] MEDS: IBUPROFEN 600 MG TAB PO SCH ×2 (02:26→09:32)
[2023-01-03 07:46] VITALS: BP 125/71; PULSE 68; TEMP 98.2
--- NOTE | 2023-01-03 07:50 | P.DS ---
Providers Date of admission: 01/01/23 05:43 Expected date of discharge: 01/03/23 Attending physician: Jeremías Ellis Primary care physician: Stated None - Discharge Diagnosis(es) (1) Status post repeat low transverse section Current Visit: Yes Status: Acute (2) Status post tubal ligation at time of delivery, current hosp Current Visit: Yes Status: Acute Hospital Course: Patient presented for repeat low transverse and tubal ligation. She underwent this procedure without complication. course was uneventful. She denies nausea, vomiting, chest pain, shortness of breath or calf pain. Patient will be discharged home postoperative day #2 in stable condi tion to follow-up with Dr. Ellis in one week. Her incision is clean, dry, intact with yasir which are ready to be removed and Steri-Strips will be applied. Plan - Discharge Summary New Discharge Prescriptions: New Ibuprofen [Motrin] 600 mg PO Q6H #30 tab oxyCODONE HCL [OxyIR] 5 mg PO Q4HR PRN #18 tab PRN Reason: Pain Scale 4 - 6 No Action Pnv No.95/Ferrous Fum/Folic AC [ Multivitamin Tablet] 1 tab PO DAILY Insulin Glargine-Yfgn [Semglee (Yfgn) Pen] 30 units SQ DAILY Discharge Medication List Pnv No.95/Ferrous Fum/Folic AC [ Multivitamin Tablet] 1 tab PO DAILY 10/04/19 [History] Insulin Glargine-Yfgn [Semglee (Yfgn) Pen] 30 units SQ DAILY 11/25/22 [History] Ibuprofen [Motrin] 600 mg PO Q6H #30 tab 01/03/23 [Rx] oxyCODONE HCL [OxyIR] 5 mg PO Q4HR PRN #18 tab 01/03/23 [Rx] Follow up Appointment(s)/Referral(s): Jeremías Ellis MD [STAFF PHYSICIAN] - 1 Week (PO 01/10/23 @1:30 PP 02/10/23 @11:15) Discharge Disposition: HOME SELF-CARE
[2023-01-03] MEDS: SENNOSIDES-DOCUSATE SODIUM 1 EACH TAB PO SCH (11:52)
== END 2023-01-03 14:00 | disposition home or self-care (01) | DRG 785 ==
LOC: 4FBP 05:43
PROVIDERS: ADMIT Obstetrics & Gynecology; ATTEND Obstetrics & Gynecology
PROC: 0UB70ZZ Excision of Bilateral Fallopian Tubes, Open Approach (ICD-10-PCS; 2023-01-01)
PROC: 10D00Z1 Extraction of Products of Conception, Low, Open Approach (ICD-10-PCS; principal; 2023-01-01 07:47)
DX: O34.211 Maternal care for low transverse scar from previous cesarean delivery (principal); K66.0 Peritoneal adhesions (postprocedural) (postinfection); O24.424 Gestational diabetes mellitus in childbirth, insulin controlled; Z3A.39 39 weeks gestation of pregnancy; Z37.0 Single live birth; Z30.2 Encounter for sterilization; Z79.4 Long term (current) use of insulin; Z79.1 Long term (current) use of non-steroidal anti-inflammatories (NSAID); Z28.310 Unvaccinated for COVID-19
CPT/HCPCS: 85025; 86850; 86900; 86901; 88302; 88307

== ENCOUNTER 2023-11-28 09:01 | Day surgery (SDC) | payer OTHER ==
[2023-11-28 09:57] VITALS: RESP 16; TEMP 98
--- NOTE | 2023-11-28 10:19 | US ---
ULTRASOUND GUIDED FNA THYROID BIOPSY: CLINICAL HISTORY: Left thyroid nodule FINDINGS: The procedure was explained to the patient. The risks, complications, benefits and alternatives were discussed and any questions were answered. Informed consent was obtained. Patient was placed supin e on the ultrasound table and prepped and draped in the usual sterile fashion. Utilizing a 25 gauge needle, five passes were made into the requested left thyroid nodule. Patient was stable throughout the procedure. Pathology is pending. All elements of maximal barrier technique were utilized. IMPRESSION: 1. Successful ultrasound guided FNA thyroid biopsy.
[2023-11-28 10:44] VITALS: BP 131/78; PULSE 76
== END 2023-11-28 10:27 | disposition home or self-care (01) ==
LOC: RADPROMAIN 09:01
PROVIDERS: ATTEND Internal Medicine Endocrinology, Diabetes & Metabolism
DX: E04.1 Nontoxic single thyroid nodule (principal)
CPT/HCPCS: 10005; 88173; 88305